=== PATIENT | male | born 1950 | race Caucasian/White ===

== ENCOUNTER 2018-11-03 14:16 | Inpatient (IN) | payer SELFPAY ==
[2018-11-03] VITALS (71 sets, daily range): BP systolic 59–182; BP diastolic 25–119; PULSE 74–121; RESP 16–33; TEMP 36.3–37.2; O2SAT 83–99
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
--- NOTE | 2018-11-03 14:33 | DI.CT_ITS ---
SYMPTOM/DIAGNOSIS: HALLUCINATIONS NONCONTRAST HEAD CT: A noncontrast cranial CT was performed. There is mild generalized cerebral atrophy. There is no evidence of acute intracranial hemorrhage, mass effect or midline shift. The orbital and temporal bone structures appear intact. Mastoid air cells and paranasal sinuses are well aerated as visualized. CONCLUSION: No evidence of acute intracranial process.
[2018-11-03 14:50] LABS: Abs Immature Grans 0.02 k/cumm (0.0-0.09); Absolute Basophil Count 0.01 k/cumm (0.0-0.2); Absolute Lymphocyte Count 0.76 k/cumm (1.2-3.4); Absolute Monocyte Count 0.88 k/cumm (0.11-0.7); Absolute Neutrophil Count 3.65 k/cumm (1.2-6.7); Basophils % 0.2; HCT 40.4 % (40.0-50.0); HGB 14.1 g/dL (13.5-17.5); Immature Grans % 0.4; Lymphocytes % 14.3; Mean Corp. HGB Concentration 34.9 g/dL (32.0-36.0); Mean Corpuscular Hemoglobin 35.8 pg (27.0-33.0); Mean Corpuscular Volume 102.5 fL (80-95); Mean Platelet Volume 10.6 fL (8.0-11.0); Monocytes % 16.5; Neutrophils % 68.6; RBC 3.94 m/cumm (4.50-6.00); RBC Distribution Width 13.7 % (11.8-14.1); White Blood Cell Count 5.32 k/cumm (4.4-10.8)
[2018-11-03] MEDS: Normal Saline 1,000 ML 1000 ML IV (14:50)
[2018-11-03] MEDS: Thiamine 200 MG/2 ML VIAL 100 MG IV (14:53)
[2018-11-03 14:54] LABS: Platelet Count 118 x1000/uL (130-400)
[2018-11-03 15:05] LABS: ALT 37 U/L (16-63); AST 72 U/L (15-37); Albumin 4.1 g/dL (3.4-5.0); Alkaline Phosphatase 92 U/L (46-116); Anion Gap 18.7 mmol/L (3-11); BUN 20 mg/dL (7-18); Bilirubin, Total 0.9 mg/dL (0.2-1.0); CO2 21.3 mmol/L (21.0-32.0); CREATININE 1.35 mg/dL (0.70-1.30); Calcium 8.8 mg/dL (8.5-10.1); Chloride 97 mmol/L (98-107); Glucose 91 mg/dL (70-100); Magnesium 1.3 mg/dL (1.8-2.4); Sodium 137 mmol/L (136-145); Total Protein 7.7 g/dL (6.4-8.2)
[2018-11-03 15:09] LABS: Troponin I 0.07 ng/mL (0.00-0.06)
[2018-11-03 15:20] LABS: ETHANOL BLOOD < 3.0 mg/dL (<3)
[2018-11-03 15:22] LABS: BE (Venous) -2.1 mmol/L (-3-3); HCO3 (Venous) 23 mmol/L (22-28); O2 Sat (Venous) 80 % (70-80); TCO2 (Venous) 21 mmol/L (22-29); pCO2 (Venous) 36 mm/Hg (34-47); pH (Venous) 7.41 (7.32-7.43); pO2 (Venous) 43 mm/Hg (28-44)
[2018-11-03 15:34] LABS: Ammonia 16 umol/L (11-32)
[2018-11-03] MEDS: MAGNESIUM SULFATE 2 GM/50 ML BAG IVPB (15:46)
[2018-11-03] MEDS: Normal Saline 1,000 ML 50 ML IV (15:49)
[2018-11-03 16:25] LABS: Total Protein (CSF) 48 mg/dL (15-45)
[2018-11-03] MEDS: diazePAM 10 MG/2 ML SYR 5 MG IVP (16:28)
[2018-11-03 16:31] LABS: Glucose (CSF) 65 mg/dL (40-70)
[2018-11-03 16:47] LABS: Clarity Clear; RBC 0 /mm3 (0-5); Tube # 4; WBC 0 /mm3 (0-5); Xanthochromia Absent
--- NOTE | 2018-11-03 17:54 | NUR.NOTE ---
Nursing Note: Requested information from hospital in [place]. Received information today. May receive more information tomorrow. Signed release from patient. Itzel Ward. [facility], [facility]. .
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
[2018-11-03 18:45] LABS: *AMPHETAMINES SCREEN URINE Negative (Negative); *BARBITURATES SCREEN URINE Negative (Negative); *BENZODIAZEPINES SCREEN URINE Negative (Negative); Cannabinoids THC Negative (Negative); Cocaine Screen,Urine Negative (Negative); METHADONE URINE SCREEN Negative (Negative); OPIATES URINE SCREEN Negative (Negative)
[2018-11-03 18:46] LABS: Tricyclic Antidepressants Negative (Negative)
[2018-11-03] MEDS: Haloperidol 5 MG/ML VIAL (18:56)
[2018-11-03] MEDS: diazePAM 10 MG/2 ML SYR (18:58)
--- NOTE | 2018-11-03 19:07 | NUR.NOTE ---
Nursing Note: 1819--- sitting on edge of bed--trying to put on shoes--states he is going to [place] and will return in the morning to finish his tests. It will only take me a couple of hours to drive back--Dr Fu Notified. MONICA barbad to come evaluate him.--Is talkative. Hallucinating. Seeing bugs and frogs. Thinks if he doesn't leave They will hold me hostage again.Smiling but agitated.----[address] Fu has decided to allow us to give him some medication to relax him.---1854 Valium 10 mg and Haldol 5 mg given IV.---1899 resting more comfortably--continues to be monitored. Niece in room with pt---Sitter in place to monitor pt.
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
[2018-11-03 20:43] LABS: Bilirubin Negative (Negative); Blood Small (Negative); Clarity Clear (Clear); Glucose Negative (Negative); Ketones 15 mg/dL (Negative); Leukocyte Esterase Negative (Negative); Nitrite Negative (Negative); Urobilinogen 0.2 EU/dL (Up TO 0.2)
[2018-11-03 20:53] LABS: Bacteria Negative HPF (Negative); C & S Indicated? No; Casts 0-2 Hyaline LPF (Negative); Crystals Negative HPF (Negative); Epithelial Cells Negative HPF (Negative); Mucus Negative (Negative); RBC 0-2 (0-2); WBC Negative HPF (0-5)
[2018-11-03] MEDS: Normal Saline Flush 10 ML SYR IVP (21:37)
[2018-11-03] MEDS: Normal Saline 1,000 ML 125 ML IV (21:37)
[2018-11-04 04:03] VITALS: BP 121/73; PULSE 70; RESP 16; TEMP 37.2; O2SAT 97
[2018-11-04] MEDS: Normal Saline 1,000 ML 125 ML IV ×3 (05:21→22:58)
[2018-11-04 07:25] VITALS: BP 119/69; PULSE 62; RESP 17; TEMP 36.5; O2SAT 95
[2018-11-04] MEDS: Multivitamin TAB 1 TAB PO (08:23)
[2018-11-04] MEDS: LORazepam 1 MG TAB PO/SL (08:28)
[2018-11-04 09:25] LABS: HCT 36.8 % (40.0-50.0); HGB 12.2 g/dL (13.5-17.5); Mean Corp. HGB Concentration 33.2 g/dL (32.0-36.0); Mean Corpuscular Hemoglobin 35.1 pg (27.0-33.0); Mean Corpuscular Volume 105.7 fL (80-95); Mean Platelet Volume 11.1 fL (8.0-11.0); RBC 3.48 m/cumm (4.50-6.00); RBC Distribution Width 13.9 % (11.8-14.1); White Blood Cell Count 4.17 k/cumm (4.4-10.8)
[2018-11-04 09:49] LABS: Platelet Count 83 x1000/uL (130-400)
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
[2018-11-04 10:08] LABS: BUN 14 mg/dL (7-18); CREATININE 0.94 mg/dL (0.70-1.30); Calcium 8.1 mg/dL (8.5-10.1); Chloride 104 mmol/L (98-107); Glucose 136 mg/dL (70-100); Magnesium 1.7 mg/dL (1.8-2.4); Potassium 3.3 mmol/L (3.5-5.1); Sodium 138 mmol/L (136-145); TSH (W/Ref FT4) 1.44 uIU/mL (0.36-3.74); Vitamin B12 375 pg/mL (193-986)
--- NOTE | 2018-11-04 10:26 | PHARADMIT ---
Admission Pharmacy Clinical Review DELERIUM (on [facility] protocol) Code Status Full Code Current Weight Wgt-79.9 kg Renally Cleared and Narrow Therapeutic Index Meds CrCl~ 83 mL/min Meds-OK QTc Value / Action Taken QTc-489 na ( no Meds) BP Control, Fever BP- 119/69 Tmax-36.5C Electrolytes reviewed Na-138 K+3.3 Mag-1.7 DVT Prophylaxis none Opiate Usage / Scheduled Bowel Regimen Ordered No No Plt/SCr for Heparin / Enoxaparin Plts-83 SCr-0.94 INR for Warfarin NA H/H stable, WBC/Bands H&H- 12.2/36.8 WBC- 4.17 Antibiotic appropriateness none Cultures and Sensitivities CSF- no growth/24hrs Surgical ABX d/c within 24 hr na DM control / Insulin Dosing BP- 136 Heart Failure (Check EF%) (MARI's, B-Block, Diuretics) none IV to PO Switch No Home Meds Reviewed Yes Home Meds Not Ordered Ibuprofen Comments
--- NOTE | 2018-11-04 11:15 | NUR.NOTE ---
Nursing Note: 1115: pt's nieceRafia, calls for update. RN updates Rafia to plan of care and pt's current presentation
[2018-11-04 11:17] VITALS: BP 127/77; PULSE 74; RESP 17; TEMP 36.6; O2SAT 97
--- NOTE | 2018-11-04 13:06 | W.PM.PROGNOT ---
Date of Service Date of service: 11/04/18 Time of Service: 13:14 Assessment and Plan (1) Paranoid delusion: Current visit: Yes Status: Acute Etiology remains on certain at this time. Main concern is possible alcohol induced. He acknowledges that he drinks 2 beer a day. He denies ever having had withdrawal problems or blackouts or psychotic episodes with alcohol or other substances in the past. I have not identified any metabolic problem (other than possible alcohol) that would cause paranoid delusion or psychotic thinking. He is not lethargic or otherwise confused that might suggest infectious encephalopathy. He has some hematologic parameters that suggest chronic alcohol use and chronic liver disease?circumstantial support for alcoholic delirium/psychosis. MRI has been ordered. Psychiatric consult has been ordered. I am continuing with scheduled benzodiazepine and monitoring his mental status over time. (2) Psychosis: Current visit: Yes Status: Acute There has been little change in his narrative regarding the events he believes took place at his home. Management as above. I am holding off on initiating neuroleptic pending psychiatric consultation and observation over time as this may be temporary and related to alcohol. (3) Macrocytosis: Current visit: Yes Status: Acute Mild anemia, normal B12. May represent alcohol induced liver disease and/or marrow suppression. Follow CBC. (4) Thrombocytopenia: Current visit: Yes Status: Chronic As above. (5) Hypokalemia: Current visit: Yes Status: Acute Not on a diuretic. Replete orally and recheck tomorrow. (6) Discharge planning issues: Current visit: Yes Status: Acute Disposition is on at this time. Mental status needs to clear before it will be safe for him to be discharged to home. Subjective Interval history since last seen: Mr. Jean is interviewed and the story he relates regarding his belief that a culture was infiltrating his house, injecting spiders, injecting him with spider derived products that made him hallucinate, has not deviated from when he first presented to the emergency room. He denies that this has ever occurred to him in the past. I inquired if he questioned the reality of these perceptions and he thinks they are real. He has been getting scheduled benzodiazepine and has been sleeping much of the morning. He has not to date had agitation. No seizures. We have received records from February 05, [address] Mohan regarding his chronic pain for which she had been prescribed morphine and oxycodone. Mr. Jean states that he has not been taking any opiates for over 8 years (suggesting to me that he is not a reliable historian). He denies use of any street drugs. He acknowledges he drinks about 2 beer a day. He denies any recent fainting spells, head trauma chest pain, breathing issues. He does smoke, does not think he needs nicotine replacement while he is here. He acknowledges he was hospitalized sometime in the not too distant past in [place] for ruling out a heart attack. He does not know the details but believes heart attack was ruled out. Records have been requested. Exam Narrative Exam Narrative: He is awake alert, knows he is in the hospital in [facility] and that it is October 2018, he thinks it is the . He has been afebrile, normal blood pressure, normal pulse rate, normal oxygen saturation on room air. No facial asymmetry. Spontaneous eye movements normal with no nystagmus observed. Speech is clear. No indication of any neck stiffness or pain in observing him although not formally tested. Lungs clear. No heart murmur S3 or S4. He has symmetric movement of all extremities with no tremor. I do not get DTRs anywhere. No bruising on the lower extremities. No petechiae. Good pulses in the feet and wrists. Objective Objective Clinical Data: Abnormal lab results CSF culture no growth thus far. 11/03/18 11/03/18 11/03/18 Range/Units 14:40 14:40 15:17 WBC (4.4-10.8) k/cumm RBC 3.94 L (4.50-6.00) m/cumm Hgb (13.5-17.5) g/dL Hct (40.0-50.0) % MCV 102.5 H (80-95) fL MCH 35.8 H (27.0-33.0) pg Plt Count 118 L (130-400) x1000/uL MPV (8.0-11.0) fL Absolute Lymphocytes 0.76 L (1.2-3.4) k/cumm Absolute Monocytes 0.88 H (0.11-0.7) k/cumm VBG Total CO2 21 L (22-29) mmol/L Potassium (3.5-5.1) mmol/L Chloride 97 L (98-107) mmol/L Anion Gap 18.7 H (3-11) mmol/L BUN 20 H (7-18) mg/dL Creatinine 1.35 H (0.70-1.30) mg/dL Glucose (70-100) mg/dL Calcium (8.5-10.1) mg/dL Magnesium 1.3 L (1.8-2.4) mg/dL AST 72 H (15-37) U/L Troponin I 0.07 H (0.00-0.06) ng/mL Urine Ketones (Negative) mg/dL Urine Blood (Negative) CSF Total Protein (15-45) mg/dL 11/03/18 11/03/18 11/04/18 Range/Units 16:10 18:00 09:12 WBC 4.17 L (4.4-10.8) k/cumm RBC 3.48 L (4.50-6.00) m/cumm Hgb 12.2 L (13.5-17.5) g/dL Hct 36.8 L (40.0-50.0) % MCV 105.7 H D (80-95) fL MCH 35.1 H (27.0-33.0) pg Plt Count 83 L (130-400) x1000/uL MPV 11.1 H (8.0-11.0) fL Absolute Lymphocytes (1.2-3.4) k/cumm Absolute Monocytes (0.11-0.7) k/cumm VBG Total CO2 (22-29) mmol/L Potassium (3.5-5.1) mmol/L Chloride (98-107) mmol/L Anion Gap (3-11) mmol/L BUN (7-18) mg/dL Creatinine (0.70-1.30) mg/dL Glucose (70-100) mg/dL Calcium (8.5-10.1) mg/dL Magnesium (1.8-2.4) mg/dL AST (15-37) U/L Troponin I (0.00-0.06) ng/mL Urine Ketones 15 H (Negative) mg/dL Urine Blood Small H (Negative) CSF Total Protein 48 H (15-45) mg/dL 11/04/18 Range/Units 09:12 WBC (4.4-10.8) k/cumm RBC (4.50-6.00) m/cumm Hgb (13.5-17.5) g/dL Hct (40.0-50.0) % MCV (80-95) fL MCH (27.0-33.0) pg Plt Count (130-400) x1000/uL MPV (8.0-11.0) fL Absolute Lymphocytes (1.2-3.4) k/cumm Absolute Monocytes (0.11-0.7) k/cumm VBG Total CO2 (22-29) mmol/L Potassium 3.3 L (3.5-5.1) mmol/L Chloride (98-107) mmol/L Anion Gap (3-11) mmol/L BUN (7-18) mg/dL Creatinine (0.70-1.30) mg/dL Glucose 136 H (70-100) mg/dL Calcium 8.1 L (8.5-10.1) mg/dL Magnesium 1.7 L (1.8-2.4) mg/dL AST (15-37) U/L Troponin I (0.00-0.06) ng/mL Urine Ketones (Negative) mg/dL Urine Blood (Negative) CSF Total Protein (15-45) mg/dL Vital Signs Temperature 36.5 C 11/04/18 07:25 Temperature Source Tympanic 11/04/18 07:25 Pulse 62 11/04/18 07:25 Pulse Rhythm Regular 11/04/18 04:00 Pulse 76 11/03/18 20:31 Respiratory Rate 17 11/04/18 07:25 Respiratory Effort Non-Labored 11/04/18 04:00 Respiratory Depth Normal 11/04/18 04:00 Respiratory Pattern Normal 11/04/18 04:00 Blood Pressure 119/69 11/04/18 07:25 Blood Pressure Mean 55 11/03/18 20:31 Blood Pressure Position Supine 11/03/18 14:27 Pulse Oximetry 95 11/04/18 07:25 Oxygen Delivery Method Room Air 11/04/18 07:25 Oxygen Flow Rate 0 11/04/18 07:25 Pain Level 0 11/04/18 07:25 Intake & Output 11/03/18 11/04/18 11/04/18 23:59 11:59 23:59 Intake Total 1100 / 1100 1366.667 / 1366.667 Output Total 250 / 250 Balance 850 / 850 1366.667 / 1366.667 Weight 79.9 kg Intake: IV 1100 / 1100 966.667 / 966.667 Oral 400 / 400 Output: Urine 250 / 250 Other: Urine Color Yellow Urine Appearance Clear Urine Odor Strong Comment pt voided in toilet; not measured at this time Stool Size Moderate Stool Characteristics Soft Formed Voiding Methods Toilet Laboratory Results WBC 4.17 k/cumm (4.4-10.8) L 11/04/18 09:12 RBC 3.48 m/cumm (4.50-6.00) L 11/04/18 09:12 Hgb 12.2 g/dL (13.5-17.5) L 11/04/18 09:12 Hct 36.8 % (40.0-50.0) L 11/04/18 09:12 MCV 105.7 fL (80-95) H D 11/04/18 09:12 MCH 35.1 pg (27.0-33.0) H 11/04/18 09:12 MCHC 33.2 g/dL (32.0-36.0) 11/04/18 09:12 RDW 13.9 % (11.8-14.1) 11/04/18 09:12 Plt Count 83 x1000/uL (130-400) L 11/04/18 09:12 MPV 11.1 fL (8.0-11.0) H 11/04/18 09:12 Immature Gran % 0.4 11/03/18 14:40 68.6 11/03/18 14:40 14.3 11/03/18 14:40 16.5 11/03/18 14:40 0.0 11/03/18 14:40 0.2 11/03/18 14:40 Absolute Neutrophils 3.65 k/cumm (1.2-6.7) 11/03/18 14:40 Absolute Lymphocytes 0.76 k/cumm (1.2-3.4) L 11/03/18 14:40 Absolute Monocytes 0.88 k/cumm (0.11-0.7) H 11/03/18 14:40 Absolute Eosinophils 0.00 k/cumm (0.0-0.7) 11/03/18 14:40 Absolute Basophils 0.01 k/cumm (0.0-0.2) 11/03/18 14:40 Absent 11/03/18 16:10 VBG pH 7.41 (7.32-7.43) 11/03/18 15:17 VBG pCO2 36 mm/Hg (34-47) 11/03/18 15:17 VBG pO2 43 mm/Hg (28-44) 11/03/18 15:17 VBG HCO3 23 mmol/L (22-28) 11/03/18 15:17 VBG Total CO2 21 mmol/L (22-29) L 11/03/18 15:17 VBG O2 Saturation 80 % (70-80) 11/03/18 15:17 VBG Base Excess -2.1 mmol/L (-3-3) 11/03/18 15:17 Sodium 138 mmol/L (136-145) 11/04/18 09:12 Potassium 3.3 mmol/L (3.5-5.1) L 11/04/18 09:12 Chloride 104 mmol/L (98-107) 11/04/18 09:12 Carbon Dioxide 24.0 mmol/L (21.0-32.0) 11/04/18 09:12 10.0 mmol/L (3-11) 11/04/18 09:12 BUN 14 mg/dL (7-18) D 11/04/18 09:12 0.94 mg/dL (0.70-1.30) 11/04/18 09:12 >= 60.00 (mL/min/1.73m2) 11/04/18 09:12 Glucose 136 mg/dL (70-100) H 11/04/18 09:12 Calcium 8.1 mg/dL (8.5-10.1) L 11/04/18 09:12 Magnesium 1.7 mg/dL (1.8-2.4) L 11/04/18 09:12 0.9 mg/dL (0.2-1.0) 11/03/18 14:40 AST 72 U/L (15-37) H 11/03/18 14:40 ALT 37 U/L (16-63) 11/03/18 14:40 92 U/L (46-116) 11/03/18 14:40 16 umol/L (11-32) 11/03/18 15:17 0.07 ng/mL (0.00-0.06) H 11/03/18 14:40 7.7 g/dL (6.4-8.2) 11/03/18 14:40 4.1 g/dL (3.4-5.0) 11/03/18 14:40 Vitamin B12 375 pg/mL (193-986) 11/04/18 09:12 TSH 1.44 uIU/mL (0.36-3.74) 11/04/18 09:12 Yellow (Yellow) 11/03/18 18:00 Clear (Clear) 11/03/18 18:00 6.0 (5-8) 11/03/18 18:00 Ur Specific Calvin 1.010 (1.005-1.025) 11/03/18 18:00 Negative mg/dL (Negative) 11/03/18 18:00 15 mg/dL (Negative) H 11/03/18 18:00 Small (Negative) H 11/03/18 18:00 Negative (Negative) 11/03/18 18:00 Negative (Negative) 11/03/18 18:00 0.2 EU/dL (Up TO 0.2) 11/03/18 18:00 Ur Leukocyte Esterase Negative (Negative) 11/03/18 18:00 0-2 (0-2) 11/03/18 18:00 Negative HPF (0-5) 11/03/18 18:00 Ur Epithelial Cells Negative HPF (Negative) 11/03/18 18:00 Negative HPF (Negative) 11/03/18 18:00 Negative HPF (Negative) 11/03/18 18:00 0-2 hyaline LPF (Negative) 11/03/18 18:00 Negative (Negative) 11/03/18 18:00 Ur Culture Indicated? No 11/03/18 18:00 Negative mg/dL (Negative) 11/03/18 18:00 4 11/03/18 16:10 Colorless 11/03/18 16:10 Clear 11/03/18 16:10 0 /mm3 (0-5) 11/03/18 16:10 0 /mm3 (0-5) 11/03/18 16:10 CSF Diff Comment 11/03/18 16:10 65 mg/dL (40-70) 11/03/18 16:10 48 mg/dL (15-45) H 11/03/18 16:10 Negative (Negative) 11/03/18 18:00 Negative (Negative) 11/03/18 18:00 Ur Barbiturates Screen Negative (Negative) 11/03/18 18:00 Ur Tricyclics Screen Negative (Negative) 11/03/18 18:00 Ur Amphetamines Screen Negative (Negative) 11/03/18 18:00 U Benzodiazepines Scrn Negative (Negative) 11/03/18 18:00 Negative (Negative) 11/03/18 18:00 Ur THC Screen Negative (Negative) 11/03/18 18:00 Ethyl Alcohol < 3.0 mg/dL (<3) 11/03/18 14:40
[2018-11-04] MEDS: Potassium Chloride 20 MEQ TABCR 40 MEQ PO (13:40)
[2018-11-04] MEDS: LORazepam 2 MG/ML VIAL 1 MG IVP (14:47)
[2018-11-04] MEDS: Normal Saline Flush 10 ML SYR IVP (14:47)
--- NOTE | 2018-11-04 15:35 | DI.MRI_ITS ---
SYMPTOMS/DIAGNOSIS: NEW DELUSIONS AND PSYCHOTIC THINKING BRAIN MRI: MRI examination of the brain was performed according to the usual protocol. There is severe generalized cerebral atrophy, unusual for the patient's age. There are nonspecific areas of abnormal signal in periventricular white matter, sparing the corpus callosum, consistent with microvascular ischemic changes. No other significant signal abnormality identified in the brain. The orbital and temporal bone structures appear intact. There is normal flow void in the samish of Greenberg vasculature. Pituitary is unremarkable. Diffusion weighted imaging shows no evidence of acute or subacute infarct. Susceptibility weighted imaging shows no evidence of intracranial hemorrhage. CONCLUSION: Severe cerebral atrophy, microvascular ischemic changes. No focal abnormality.
--- NOTE | 2018-11-04 16:31 | PT.INNT ---
Date of service: 11/04/18 Time of Service: 16:31 PT Notes Patient is a 68-year-old male diagnosed with paranoid delusions, psychosis, macrocystosis, thromobocytopenia, and hypokalemia referred to physical therapy for limited ability and fall risk. Patient had a dose of Ativan prior to MRI today at 15:35. Nurse stated that patient also received Serax within 15-20 minutes of this PT visit. Patient is still under the effects of sedative and benzodiazepine and will not respond well to mobility assessment. A second attempt at PT evaluation will be made tomorrow morning in order to assess for safety of mobility ADL performance as ordered. Thank you very much for this referral. Sahra Lopez PT, DPT, CLT [facility]
[2018-11-04 17:49] VITALS: BP 143/87; PULSE 73; RESP 18; TEMP 36.3; O2SAT 97
[2018-11-05 00:11] VITALS: BP 147/79; PULSE 78; RESP 16; TEMP 37.1; O2SAT 94
[2018-11-05 03:41] VITALS: BP 168/106; PULSE 76; RESP 16; TEMP 37.2; O2SAT 100
[2018-11-05 07:05] VITALS: BP 181/89; PULSE 75; RESP 18; TEMP 36.2; O2SAT 98
[2018-11-05 07:34] LABS: RBC Distribution Width 13.8 % (11.8-14.1)
[2018-11-05 07:38] LABS: HCT 35.1 % (40.0-50.0); HGB 11.7 g/dL (13.5-17.5); Mean Corp. HGB Concentration 33.3 g/dL (32.0-36.0); Mean Corpuscular Hemoglobin 35.8 pg (27.0-33.0); Mean Corpuscular Volume 107.3 fL (80-95); Mean Platelet Volume 11.4 fL (8.0-11.0); RBC 3.27 m/cumm (4.50-6.00); White Blood Cell Count 4.32 k/cumm (4.4-10.8)
[2018-11-05] MEDS: Multivitamin TAB 1 TAB PO (07:40)
[2018-11-05 07:44] LABS: BUN 15 mg/dL (7-18); CREATININE 0.83 mg/dL (0.70-1.30); Calcium 8.2 mg/dL (8.5-10.1); Chloride 107 mmol/L (98-107); Glucose 127 mg/dL (70-100); Potassium 3.5 mmol/L (3.5-5.1); Sodium 141 mmol/L (136-145)
[2018-11-05 08:29] LABS: Platelet Count 87 x1000/uL (130-400)
--- NOTE | 2018-11-05 10:11 | IN_ITS ---
Date of service: 11/05/18 Time of Service: 09:26 PT Notes Inpatient Physical Therapy Evaluation Date: 11/05/2018 Referring Doctor: Cooper Black MD PT Orders: PT CONSULT: Limited ability. Fall risk. Precautions: Fall. Standard. Activity as tolerated. Patient Profile/Admitting Diagnosis: Patient is a 68-year-old male who presented to the ED on 11/03/2018 with chief presentation of altered mental status and chief complaints of spider feeling him into his house attempting to poison him. Patient was diagnosed with paranoid delusion, psychosis, macrocytosis, thrombocytopenia, and hypokalemia. PMHX: Hypokalemia Thrombocytopenia Macrocytosis Psychosis Social History/Home Situation: Patient residese alone in a private house with three steps to enter. he has abnother thre steps to get down into the the kitchen, one down to the living room without rails, and down one to his bedroom. Equipment Owned/DME: Two wooden canes Subjective: Patient agreeable to PT consult. Denies headache, dizziness, and chest pain. Objective: General Observation: Patient seen sitting at edge of bed with OT. No lines attached. Mental Status: Alert and oriented as to person, place, time, and purpose Pain: 0/10 ROM: Right Lower Extremity: Hip flexion WFL. Hip abduction WFL. Knee flexion WFL. Ankle dorsiflexion WFL. Ankle plantarflexion WFL. Left Lower Extremity: Hip flexion WFL. Hip abduction WFL. Knee flexion WFL. Ankle dorsiflexion WFL. Ankle plantarflexion WFL. Strength: Right Lower Extremity: Hip flexors 5/5. Hip abductors 5/5. Knee flexors 5/5. Knee extensors 5/5. Ankle dorsiflexors 5/5. Ankle plantarflexors 5/5. Left Lower Extremity:Hip flexors 5/5. Hip abductors 5/5. Knee flexors 5/5. Knee extensors 5/5. Ankle dorsiflexors 5/5. Ankle plantarflexors 5/5. Sensation: Intact as to pain and pressure on bilateral lower extremities. Bed Mobility/Transfers: Rolling independent Supine to sit independent Sit to supine independent Sit to stand independent Stand to sit independent Bed to chair supervision Chair to bed supervision Gait: Patient was able to tolerate level surface ambulation without an assistive device with SBA of this PT. Age-related gait velocity observed. Minimal verbal cues given just for directions and safely m,aking turns. Balance: Static Sitting: Normal Dynamic Sitting: Normal Static Standing: Normal Dynamic Standing: Fair Special Tests: Mobility Limitations Standardized Measure [facility] AM-PAC 6 clicks Basic Mobility Inpatient Short Form: Raw Score: 22 CMS Score: 21% deficit 4-Stage Balance Test: Patient is able to tolerate feet together, semi-tandem, and full tandem stance. He is unable to tolerate one-legged stance which places him at risk for falls. 30-second chair rise: Patient was able to tolerate 12x for this test without any issues. Informed Consent/Education: Patient instructed in purpose of PT consult and plan of care. Assessment: Patient had quite a difficulty with sustaining one legged stance during the 4 stage balance test indicating at risk for falls. He would benefit from skilled physical therapy services to address balance issues in order to increase safety level with ambulation activity in the community and during hiking pursuits and non-level terrain. Patient presents with clinical signs and symptoms consistent with current/admitting diagnoses that have resulted to mobility limitations, gait instability, generalized weakness, and impairment of motor control as demonstrated by the following impairment level findings: 1. Impaired activity tolerance Impairments are contributing to the following functional limitations: 1. Increased fall risk 2. Inability to negotiate steps alone safely Patient is assessed as a 36981 low complexity based on the following: History: 68-year-old male with premorbid independent level now with diagnosis of paranoid delusions, psychosis, macrocytosis, thrombocytopenia, and hypokalemia Examination:Demonstrable impairment in balance with underlying impairments and functional limitations as documented above Presentation: Stable Decision Makin low complexity Goals: Goals X1 week 1. Patient will score 15 in the 30-second chair rise in order to reduce fall risk and improve functional performance. 2. Patient will be able to sustain one leg and stance for at least 15 seconds in order to reduce fall risk and improve functional performance. 3. Patient will be independent with all ambulation activities on variable surfaces to reduce fall risk and increase ability to remain in the community. Plan of Care/Treatment Plan: 1-2x/day, 7 days/week x 1 week. Plan of care has been reviewed with the CENTRAL CONTROL ROOM OPERATOR providing the service under Physical Therapy direction. Initiate Physical Therapy intervention for strengthening, bed mobility, transfers, gait, stairs, balance training, use of assistive device. DISCHARGE RECOMMENDATIONS: No equipment needs at this time. Patient will benefit from an outpatient physical therapy services for advanced level balance exercises to reduce fall risk. TREATMENT CODE/TIME: 79012 x 17 minutes beginning at 9:41 AM. Thank you very much for this referral. Sahra Lopez PT, DPT, CLT [facility]
--- NOTE | 2018-11-05 10:56 | OTIE_ITS ---
Occupational Therapy Notes Inpatient Occupational Therapy Evaluation Date: 11/05/18 Referring Doctor: Cooper Black MD OT Orders: Eval and Treat Precautions: Standard PATIENT PROFILE/ADMITTING DIAGNOSIS: Pt was a 68 year old male was referred to [facility] through the ER for delirium. Past Medical History: Hemochromotosis. Anemia. claustrophobia. Hypertension. fdc use of opiates. Degenerative disc disease - lumbar. Cervical disc disease, Disorder of glycoprotein metabolism, Chronic back and neck pain. Social History/Home Situation: Pt states that he lives alone in a private home. He has multiple small 1-3 steps throughout his home into every room. He states that he is able to perform community mobility (I), he is (I) with bathing, dressing, grooming and eating at baseline. Pt states that he has a tub/shower and a walk in shower. He notes that he feels that he is at his baseline level of function and that he got dehydrated. Pt states that he has family who (A) and checks in on him weekly. Equipment owned/DME: walking stick, cane, grab bars SUBJECTIVE: Pt was sitting in bed when OT arrived. He was agreeable to OT session reporting that he believes he is totally (I) and at his baseline level of function. OBJECTIVE: General Observation: Pleasant and able to answer questions appropriately. Mental Status: A&Ox3 Pain: no c/o pain ROM: RUE AROM WFL L UE AROM WFL STRENGTH: RUE 5/5 throughout globally LUE 5/5 throughout globally FUNCTIONAL MOBILITY/ADLS: Transfers Supine-sit (I) Sit-Stand (I) Stand-sit (I) Bed-Chair (I) Chair-bed (I) BATHING Pt denied although was able to demonstrate ideal functional ROM to perform bathing routine (I). DRESSING Sitting on side of bed Dressing LE (I) don and doff (B) socks GROOMING Standing at sink with ideal balance for about 5 minutes (I) brushing teeth TOILETING NT EATING Performed prior to OT arrival and pt was (I). BALANCE: Static sitting Normal Dynamic Sitting Normal Static Standing Normal Dynamic Standing Normal SPECIAL TESTS: Daily Activity Limitations Standardized Measure [facility] AM -PAC ?6 clicks? Daily Activity Inpatient Short Form: Raw score: 24 Standardized score: 57.54 CMS score: 0.00% INFORMED CONSENT/EDUCATION: Pt instructed in purpose of OT Consult and plan of care. ASSESSMENT: Patient is a 68-year-old male referred to occupational therapy se tony with diagnosis of delirium. Pt was seen for OT consult only, He presented with increased (I) in his ADL/IADL routines. He appears to be at his baseline level of function and was appropriate and receptive to all education provided during session. Pt functionally was able to demonstrate ideal functional mobility and ability to perform standing ADLs (I). OT recommends that pt return home when medically cleared per MD. AMPAC score 24, CMS score 0.00% Patient is assessed as a Low 27565 complexity based on the following: History: See Above Examination: See functional limitations as listed above. Presentation: Evolving Decision Making: AMPAC 24, CMS score 0.00% GOALS N/A PLAN OF CARE/TREATMENT PLAN: OT consult only. DISCHARGE RECOMMENDATIONS OT recommends that pt return home when medically cleared per MD. TREATMENT TIME/MINUTES/CODES 50482, 15 minutes (09:25) Elvira Murillo OTR/L [facility]
[2018-11-05 11:27] LABS: Syphilis Serology (RPR) Positive (Negative)
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
[2018-11-05 11:54] VITALS: BP 166/106; PULSE 71; RESP 16; TEMP 36.5; O2SAT 97
--- NOTE | 2018-11-05 13:56 | PT.INTREAT ---
Date of service: 11/05/18 Time of Service: 14:52 PT Notes Inpatient Physical Therapy Treatment Note [facility] Date: 11/05/18 PRECAUTIONS: Fall SUBJECTIVE: Mitch is pleasant and agreeable to participating in PT. OBJECTIVE: PAIN: No c/o pain BED MOBILITY/TRANSFERS Sit-stand: S Stand-sit: S GAIT Assistive Device: No AD Weight bearing: Full Assist: SBA Distance: 200' STAIRS: Up/down 6x4 and 4x6 using 1 rail and a step-over pattern with supervision. NEURO RE-ED: Patient completed a static and dynamic balance re-education program, including SLS, feet close, tandem stance and walking, side-stepping, and grapevine all with gait belt and CGA for safety. ASSESSMENT: Patient tolerated session well without complaint. He was able to tolerate a progression in gait distance without use of AD, with SBA. He would benefit from continued participation in balance retraining for improved stability and decreased risk for falls. PLAN: Continue with PT's POC TREATMENT CODE/TIME: 25 minutes; [id number], [id number]
[2018-11-05 16:59] LABS: VDRL, CSF Negative (Negative)
--- NOTE | 2018-11-05 17:43 | DSE_ITS ---
Date of service: 11/05/18 Time of Service: 17:43 DS: Diagnosis Discharge Diagnosis (1) Alcohol withdrawal syndrome: Status: Acute Asessment and Plan: Patient admits to regular daily alcohol use, most r ecently in the form of beer. A friend came in that verified that he has been drinking beer on a regular basis recently. We are presuming that his presentation with hallucinations and delirium are related to acute alcohol withdrawal syndrome. His symptoms improved with scheduled Serax dosing. He is discharged with another 4 days of Serax then stop. He assures us he will abstain from alcohol. (2) Delirium: Status: Acute Asessment and Plan: Acute delirium with hallucinations and fixed delusions appear to be related to acute alcohol withdrawal syndrome. He does not appear to have an underlying psychotic disorder. By the time of discharge he was mentating reasonably well. His friend plans to watch him closely and the plan is for them to return to [place] where he has more support. (3) Discharge planning issues: Status: Acute Asessment and Plan: Discharge to home. He has a friend that we will watch him closely. They are planning on spending a few more days at his cabin before returning to [place] in a caravan. Discharge Plan Disposition Patient Disposition: HOME Condition: Improving Discharge Details Chief Complaint: AMS/LOC Reason For Visit: DELIRIUM/ alcohol withdrawl syndrome Admit Date/Time: 11/03/18 18:15 Admit Provider: Cornell Faust Attending Provider: Cornell Faust Primary Care Provider: Cornell Mohan ED Provider: Aldo Fu Hospital Course Hospital Course: This is a 68-year-old who presented with dm hallucinations and apparent delirium. Alcohol withdrawal syndrome was suspected and he was placed on scheduled Serax dosing. CIWA scores never attained more than a level of 3. Gradually his hallucinations improved. He was seen by Dr. Oxana Quintana from psychiatry who agreed that alcohol withdrawal psychosis could be playing a role here. He apparently had given up hard liquor recently but was still drinking beer on a regular basis. A close friend who had been to the home noted there were many empty beer cans but hard liquor was not used. He had also recently been on long-term opiate therapy but apparently quit that in March 2018 on his own. His friend notes that today after 24 hours on Serax therapy he was back to baseline and did not appear to be hallucinating or delirious. His friend was anxious to take him home with plans to transport him back to [place] where he would be under close supervision. Patient agrees to abstain from alcohol while taking Serax therapy for completion of his outpatient alcohol withdrawal treatment. Home Meds and New Rx's Prescriptions: New oxazepam 15 mg Capsule 15 mg PO Q6H 4 Days Qty: 16 RF: 0 Continued ibuprofen 200 mg Tablet 200 mg PO PRN PRNRF: 0 Discharge Instructions Instructions: Acute Delirium (DC), Alcohol Withdrawal (DC), Alcohol Dependence (GEN), Alcohol Use Disorder (DC) Stand Alone Forms: Nursing Discharge Form Activity:: Activity as Tolerated Equipment/Supplies:: No Equipment Needed Diet:: As Tolerated Discharge Orders Discharge Orders: Discharge Order (Routine); Ordered 11/05/18 Ordered By: Mitch Masters Discharge Data Discharge Date/Time-TO BE ENTERED AT DEPARTURE: 11/05/18 16:25 DS: Summary Status at Discharge Functional status at discharge: independent ambulation Overall status at discharge: patient is back to baseline Time Spent with Patient Greater than 30 minutes Exam Narrative Exam Narrative: At the time of discharge he was able to ambulate in his room without difficulty. He was no longer hallucinating. He gave clear and accurate history. Neurologically she showed no focal deficits or overt signs of alcohol withdrawal. He had no tremor. His friend notes that his overall functional status appeared to be back to baseline. DS: Data Vitals/I&O Vitals and I&O: Vital Signs Temperature 36.5 C 11/05/18 11:54 Temperature Source Temporal Artery Scan 11/05/18 11:54 Pulse 71 11/05/18 11:54 Pulse Rhythm Regular 11/05/18 03:30 Pulse 76 11/03/18 20:31 Respiratory Rate 16 11/05/18 11:54 Respiratory Effort Non-Labored 11/05/18 03:30 Respiratory Depth Normal 11/05/18 03:30 Respiratory Pattern Normal 11/05/18 03:30 Blood Pressure 166/106 H 11/05/18 11:54 Blood Pressure Mean 55 11/03/18 20:31 Blood Pressure Position Supine 11/03/18 14:27 Pulse Oximetry 97 11/05/18 11:54 Oxygen Delivery Method Room Air 11/05/18 11:54 Oxygen Flow Rate 0 11/05/18 11:54 Pain Level 0 11/05/18 11:54 Comment 11/05/18 03:41 Intake & Output 11/04/18 11/05/18 11/05/18 23:59 11:59 23:59 Intake Total 2868.75 / 4235.417 780 / 780 Balance 2868.75 / 4235.417 780 / 780 Intake: IV 2868.75 / 3835.417 Oral 780 / 780 Other: Urine Color Yellow Yellow Yellow Urine Appearance Cloudy Clear Urine Odor Normal Normal Normal Comment no hat in toilet pt states he is dribbling and is unsure why, not common for him to be incontinent. pt wearing brief which is noted to be moderately wet with urine at this time. small amount of smeared stool noted as well. pt voiding directly in to toilet at this time pt voiding ad kayla in toilet Stool Size Moderate Small Stool Characteristics Liquid Soft Brown Formed Brown Voiding Methods Toilet Toilet Toilet Labs on day of discharge: Labs from last 24 hours 11/05/18 11/05/18 11/03/18 06:23 06:23 16:10 WBC 4.32 L RBC 3.27 L Hgb 11.7 L Hct 35.1 L MCV 107.3 H MCH 35.8 H MCHC 33.3 RDW 13.8 Plt Count 87 L MPV 11.4 H Sodium 141 Potassium 3.5 Chloride 107 Carbon Dioxide 24.0 Anion Gap 10.0 BUN 15 Creatinine 0.83 Estimated GFR/1.73 m2 >= 60.00 Glucose 127 H Calcium 8.2 L CSF VDRL Negative Syphilis Serology Syphilis Total Ab 11/03/18 14:40 WBC RBC Hgb Hct MCV MCH MCHC RDW Plt Count MPV Sodium Potassium Chloride Carbon Dioxide Anion Gap BUN Creatinine Estimated GFR/1.73 m2 Glucose Calcium CSF VDRL Syphilis Serology Positive Syphilis Total Ab Pending Preliminary micro results at discharge 11/03/18 16:10 Body Fluid Culture - Preliminary Cerebrospinal Fluid [facility] Social History Smoking/Tobacco Use Status: Current every day Tobacco Type: cigarettes and cigars Alcohol Intake: current Alcohol Intake frequency: 0-2 drinks per day Alcohol type: beer Drug use: Never Do you feel safe at home: No (hallucinating / hostage situation) Do you feel safe in your relationship?: Yes Additional Social history: reported by dawn that pt has been calling [facility] because he feels that intruders are at his camp. he also reports that spiders are taking his camp over
--- NOTE | 2018-11-05 17:54 | PDOC.CMDIS ---
- If Service Date Differs Date of service: 11/05/18 Time of Service: 17:54 LACE Index Scoring Tool - Questions: Length of Stay (in days): 2 Acuity (Admit via E.D.?): Yes E.D. Visits: 1 - Answers: Total Score: 6 Risk of Readmission: Low Risk Care Management Discharge Reason for Hospitalization: Delerium Discharge Plan: Mitch will be discharged home with no services. [place] He will follow up with his PCP and discharge plan of care. He will transport with his friend Chalino via private vehicle. Patient/Family Education Needs: Discharge plan, limitations, follow up and Ask Me Three.
[2018-11-06 13:27] LABS: Syphilis Total Ab w/Reflex Reactive (Nonreactive)
[2018-11-06 14:33] LABS: RPR Screen w/Reflex Nonreactive (Nonreactive)
[2018-11-08 08:08] LABS: Syphilis Ab, TP-PA Positive
== END 2018-11-05 16:25 | disposition home or self-care (01) | DRG 897 ==
LOC: ER 17:41 → MS 20:51
PROVIDERS: Internal Medicine; Admitting Provider General Practice; Emergency Provider Emergency Medicine; PCP Family Medicine; Visit Provider Family Medicine
DX: F10.231 Alcohol dependence with withdrawal delirium (principal); F10.232 Alcohol dependence with withdrawal with perceptual disturbance; F17.210 Nicotine dependence, cigarettes, uncomplicated; D75.89 Other specified diseases of blood and blood-forming organs; D69.6 Thrombocytopenia, unspecified; E87.6 Hypokalemia
CPT/HCPCS: 0064U; 36415; 36416; 62270; 80048; 80053; 80307; 82805; 82945; 82962; 85027; 86780; 89050; 89051; 93005; 96361; 96365; 96366; 96375; 97112; 97161; 97165; 97530; 99222; 99233; 99239; 99254; 99285; 70450; 70551; 80320; 81003; 81015; 82140; 82607; 83735; 84157; 84443; 84484; 85025; 86592; 87070; 87205; 93010; J1630; J2060; J3360